=== PATIENT | female | born 1985 | race Caucasian/White ===

== ENCOUNTER 2016-07-16 17:17 | Emergency (ER) | payer SELFPAY ==
[2016-07-16 17:31] VITALS: BP 137/84; PULSE 79; RESP 16; TEMP 97.9; O2SAT 98
== END 2016-07-16 17:30 | disposition left against medical advice (07) ==
LOC: CED 17:17
DX: O46.90 Antepartum hemorrhage, unspecified, unspecified trimester (principal)